=== PATIENT | female | born 1970 | race African-American/Black ===

== ENCOUNTER 2019-07-07 16:55 | Observation (INO) ==
[2019-07-07] MEDS ORDERED: ONDANSETRON 4 MG/2 ML VIAL IV STA (17:17)
[2019-07-07] MEDS ORDERED: NITROGLYCERIN 2% OINT 1 INCH/GM PACK TOP STA ×2 (17:17→18:23)
[2019-07-07] MEDS ORDERED: METOPROLOL TARTRATE 25 MG TABLET PO STA (17:17)
[2019-07-07] MEDS ORDERED: KETOROLAC 30 MG/1 ML VIAL IV STA (17:17)
[2019-07-07] MEDS ORDERED: ORPHENADRINE 60 MG/2 ML VIAL IV STA (17:17)
[2019-07-07] MEDS ORDERED: ASPIRIN 325 MG TABLET PO STA (17:17)
[2019-07-07 17:58] LABS: Alanine Aminotransferase 17 U/L (13-56); Albumin 3.1 G/DL (3.4-5.0); Alkaline Phosphatase 83 U/L (45-117); Aspartate Amino Transferase 21 U/L (0-37); Bilirubin,Total < 0.39 MG/DL (0.2-1.0); Blood Urea Nitrogen 14 MG/DL (7-18); Calcium 8.4 MG/DL (8.5-10.1); Estimated Glom Filtration Rate 68 ML/MIN; Glucose 122 MG/DL (74-106); Total Protein 7.7 G/DL (6.4-8.3)
[2019-07-07 17:59] LABS: Troponin I 0.379 NG/ML (0.00-0.045)
[2019-07-07 18:01] LABS: Basophils % 0.5 % (0.0-0.8); Eosinophils # 0.1 10*3/uL (0.0-0.87); Eosinophils % 1.3 % (0.00-10.9); Hematocrit 38.6 VOL% (35.7-47.0); Hemoglobin 13.2 GM/DL (12.0-16.0); Immature Granulocytes % 0.3 %; Immature Granulocytes Absolute 0.02 #; Lymphocytes # 1.7 10*3/uL (1.4-4.0); Lymphocytes % 22.2 % (21.3-54.2); Mean Corpuscular HGB Conc 34.2 GM/DL (32-36); Mean Corpuscular Volume 89.6 FL (87-102); Mean Platelet Volume 9.6 FL (9.6-12.0); Monocytes % 8.9 % (1.7-12.7); Neutrophils % 66.8 % (38.7-73.9); Platelet Count 217 T/CUMM (130-400); Red Blood Count 4.31 MC/CUMM (3.8-5.5); Red Cell Distribution Width 13.6 % (9.3-17.3); White Blood Count 7.7 T/CUMM (4-12)
[2019-07-07 18:12] LABS: PT Patient Result 10.4 SECS (9.6-12.2); Partial Thromboplastin Time 25.6 SECS (20.8-36.0)
[2019-07-07 18:42] LABS: Apearance,Urine CLEAR (Clear); Bilirubin,Urine Negative (Negative); Blood, Urine Small mg/dL (Negative); Glucose,Urine (UA) Negative (Negative); Ketones,Urine Negative (Negative); Mucus,Urine Occasional /LPF (Occasional); Nitrite,Urine Negative (Negative); Protein,Urine Negative; RBC,Urine 1 /HPF (0-4); Squamous Epithelial Cell,Urine Occasional /HPF (0-10); Urine Color Yellow (Yellow); Urine Specific Gravity 1.011 (1.001-1.035); Urine Urobilinogen < 2.0 EU/DL (0.2-1.0); WBC,Urine <1 /HPF (0-6)
[2019-07-07 18:45] LABS: Barbiturates Screen,Urine Negative (Negative); Benzodiazepines Screen,Urine Negative (Negative); Cannabinoid Screen,Urine Negative (Negative); Opiate Screen,Urine Negative (Negative); Phencyclidine Screen,Urine Negative (Negative)
[2019-07-07] MEDS ORDERED: ACETAMINOPHEN 325 MG TABLET PO PRN (20:31)
[2019-07-07] MEDS ORDERED: DOCUSATE SODIUM 100 MG CAPSULE PO PRN (20:31)
[2019-07-07] MEDS ORDERED: MORPHINE 4 MG/1 ML VIAL IV PRN (20:31)
[2019-07-07] MEDS ORDERED: ONDANSETRON 4 MG/2 ML VIAL IV PRN (20:31)
[2019-07-07] MEDS ORDERED: ALUM/MAG/SIMETH/LIDO VISC 1:1 30 ML BOTTLE PO STA (20:35)
[2019-07-07] MEDS ORDERED: hydrALAZINE 20 MG/1 ML VIAL IV PRN (20:39)
[2019-07-07] MEDS ORDERED: ENOXAPARIN 40 MG/0.4 ML SYRINGE SUBCUT SCH (21:00)
[2019-07-07 21:02] LABS: Thyroid Stimulating Hormone 2.11 uIU/ml (0.358-3.74)
[2019-07-07] MEDS ORDERED: BISACODYL 10 MG SUPP RECTAL PRN (23:20)
[2019-07-08] MEDS: SODIUM CHLORIDE 0.45% 1,000 ML IV SCH ×3 (01:20→17:26)
[2019-07-08] MEDS: METOPROLOL TARTRATE 25 MG TABLET PO SCH ×2 (01:29→08:56)
[2019-07-08] MEDS ORDERED: INFLUENZA VIRUS VACCINE 0.5 ML SYRINGE IM ONE (02:13)
[2019-07-08] MEDS ORDERED: PNEUMOCOCCAL VACCINE (23 VALENT) 0.5 ML VIAL IM ONE (02:35)
[2019-07-08 04:37] LABS: Basophils % 0.3 % (0.0-0.8); Eosinophils # 0.1 10*3/uL (0.0-0.87); Hematocrit 36.2 VOL% (35.7-47.0); Immature Granulocytes % 0.2 %; Immature Granulocytes Absolute 0.01 #; Lymphocytes # 1.7 10*3/uL (1.4-4.0); Lymphocytes % 26.8 % (21.3-54.2); Mean Corpuscular HGB Conc 33.1 GM/DL (32-36); Mean Corpuscular Volume 91.2 FL (87-102); Mean Platelet Volume 10.2 FL (9.6-12.0); Monocytes % 12.6 % (1.7-12.7); Neutrophils % 58.1 % (38.7-73.9); Platelet Count 195 T/CUMM (130-400); Red Blood Count 3.97 MC/CUMM (3.8-5.5); Red Cell Distribution Width 13.7 % (9.3-17.3); White Blood Count 6.4 T/CUMM (4-12)
[2019-07-08 05:09] LABS: Albumin 2.8 G/DL (3.4-5.0); Bilirubin,Total 0.5 MG/DL (0.2-1.0); Calcium 8.3 MG/DL (8.5-10.1); Osmolality,Calculated 276.7 MOS/KG (273-304); Risk Ratio 4.86; Total Protein 6.7 G/DL (6.4-8.3); VLDL CHOLESTEROL 25.8 MG/DL
[2019-07-08] MEDS ORDERED: LINACLOTIDE 145 MCG CAPSULE PO SCH (07:30)
[2019-07-08] MEDS ORDERED: KETOROLAC 30 MG/1 ML VIAL IV ONE (08:35)
[2019-07-08] MEDS ORDERED: POLYETHYLENE GLYCOL POWDER 17 GM PACK PO SCH (09:00)
[2019-07-08] MEDS ORDERED: NICOTINE 21 MG/24 HR PATCH TRANSDERM SCH (09:00)
[2019-07-08] MEDS ORDERED: ASPIRIN EC 81 MG TABLET PO SCH (09:00)
[2019-07-08] MEDS ORDERED: ARIPiprazole 5 MG TABLET PO SCH (09:00)
[2019-07-08] MEDS ORDERED: PANTOPRAZOLE 40 MG TABLET PO SCH (09:00)
[2019-07-08 17:27] VITALS: BP 138/82
[2019-07-08] MEDS ORDERED: ROSUVASTATIN 20 MG TABLET PO SCH (21:00)
[2019-07-08] MEDS ORDERED: SIMVASTATIN 20 MG TABLET PO SCH (21:00)
[2019-07-08] MEDS ORDERED: MIRTAZAPINE 15 MG TABLET PO SCH (21:00)
== END 2019-07-08 19:10 | disposition home or self-care (01) ==
LOC: EDUNIT# → EDBD → N.ED 16:55 → N.EDINP 20:30 → INTOOBSV 20:30 → SUATTDRO 20:30 → N.TELES 21:09
PROVIDERS: ADMIT Internal Medicine; ATTEND Internal Medicine Cardiovascular Disease